=== PATIENT | male | born 1935 | race African-American/Black ===

== ENCOUNTER 2018-08-31 22:41 | Inpatient (IN) | payer MEDICARE, OTHER ==
[~2018-08-31] VITALS: Ht 175.3 cm; Wt 96.6 kg
[2018-09-09 06:31] VITALS: BP 110/58
== END 2018-09-09 12:15 | disposition home or self-care (01) | DRG 246 ==
LOC: EDBD 23:34 → ED 23:34 → EDIP 09-01 00:06 → 5SO 09-01 01:23 → CCU 09-03 17:42 → 5SO 09-04 21:07
PROVIDERS: ADMIT Internal Medicine; ATTEND Internal Medicine
PROC: 027034Z Dilation of Coronary Artery, One Artery with Drug-eluting Intraluminal Device, Percutaneous Approach (ICD-10-PCS; principal; 2018-09-03)
PROC: 02C03ZZ Extirpation of Matter from Coronary Artery, One Artery, Percutaneous Approach (ICD-10-PCS; 2018-09-03)
PROC: 4A023N7 Measurement of Cardiac Sampling and Pressure, Left Heart, Percutaneous Approach (ICD-10-PCS; 2018-09-03)
PROC: B2111ZZ Fluoroscopy of Multiple Coronary Arteries using Low Osmolar Contrast (ICD-10-PCS; 2018-09-03)
PROC: B2151ZZ Fluoroscopy of Left Heart using Low Osmolar Contrast (ICD-10-PCS; 2018-09-03)
DX: I21.4 Non-ST elevation (NSTEMI) myocardial infarction (principal); N17.0 Acute kidney failure with tubular necrosis; E87.2 Acidosis; I16.1 Hypertensive emergency; N25.81 Secondary hyperparathyroidism of renal origin; D50.9 Iron deficiency anemia, unspecified; D63.1 Anemia in chronic kidney disease; D69.6 Thrombocytopenia, unspecified; E11.21 Type 2 diabetes mellitus with diabetic nephropathy; E11.22 Type 2 diabetes mellitus with diabetic chronic kidney disease; N18.3 Chronic kidney disease, stage 3 (moderate); E11.65 Type 2 diabetes mellitus with hyperglycemia; E55.9 Vitamin D deficiency, unspecified; I07.1 Rheumatic tricuspid insufficiency; E66.9 Obesity, unspecified; E78.5 Hyperlipidemia, unspecified; I13.10 Hypertensive heart and chronic kidney disease without heart failure, with stage 1 through stage 4 chronic kidney disease, or unspecified chronic kidney disease; I25.10 Atherosclerotic heart disease of native coronary artery without angina pectoris; I49.3 Ventricular premature depolarization; I70.0 Atherosclerosis of aorta; N40.0 Benign prostatic hyperplasia without lower urinary tract symptoms; R09.02 Hypoxemia; Z79.899 Other long term (current) drug therapy; Z82.49 Family history of ischemic heart disease and other diseases of the circulatory system; Z87.01 Personal history of pneumonia (recurrent); Z68.31 Body mass index [BMI] 31.0-31.9, adult; Z83.6 Family history of other diseases of the respiratory system; Z87.891 Personal history of nicotine dependence; J70.2 Acute drug-induced interstitial lung disorders; T50.3X5A Adverse effect of electrolytic, caloric and water-balance agents, initial encounter
CPT/HCPCS: 36415; 36600; 92933; 93458; 99285; J7613; 71045; 76770; 80048; 80053; 80061; 80069; 81001; 82306; 82436; 82570; 82728; 82803; 82962; 83036; 83540; 83550; 83735; 83880; 83970; 84100; 84133; 84156; 84300; 84484; 85025; 85520; 85610; 85730; 87077; 87081; 87086; 87186; 93005; 94640; 99156; 99157; C1769; C1894; C8929; G0378; J0583; J0881; J1644; J1940; J2250; J3010; Q9957; C1724; C1725; C1874; C1887; J0360; J1815; J2060; J7030; J7050; Q9967